=== PATIENT | female | born 1955 ===

== ENCOUNTER 2019-03-29 08:47 | Outpatient (CLI) | payer OTHER ==
--- NOTE | 2019-03-29 10:12 | Cat Scan Report ---
CT CHEST WITHOUT CONTRAST INDICATION / CLINICAL INFORMATION: MAIN: J98.4 OTHER DISORDER OF LUNG/ILD/RESTRICTIVE LUNG DISEASE TECH NOTES: PT C/O FOOD STRUCK IN THROAT WHILE EATING. TECHNIQUE: Axial CT images were obtained through the chest without contrast. Sagittal and coronal reformatted im ages. All CT scans at this location are performed using CT dose reduction for ALARA by means of autom ated exposure control. COMPARISON: None available. FINDINGS: HEART: Borderline heart size. No pericardial effusion. THORACIC AORTA: Minimal scattered calcific plaques. No abnormal dilatation. MEDIASTINUM and YOLY: Normal thyroid and tracheobronchial tree. There is a mild degree of fluid in th e esophagus. The esophagus is unremarkable otherwise. No obvious mass or hiatal hernia. LUNGS: Subpleural interstitial markings are slightly prominent in both lower lung zones. There is no evidence for nodule, mass or infiltrate. PLEURA: No significant pleural effusion. No pneumothorax. SKELETAL SYSTEM: Mild multilevel degenerative disc disease is noted in the thoracic spine. No suspici ous bony lesion or fracture is identified. UPPER ABDOMEN: 4.5 cm simple cyst is noted in the superior liver. ADDITIONAL FINDINGS: None. IMPRESSION: Mild interstitial prominence in the lower lung zones which could represent early idiopathic pulmonar y fibrosis. No advanced interstitial lung disease. Borderline heart size. Degenerative changes in the thoracic spine. Liver cyst. Signer Name: Rc Mattson Jr, MD Signed: 03/29/2019 10:07 AM Workstation Name: [id number]
== END 2019-03-29 08:48 | disposition home or self-care (01) ==
LOC: CT 08:47
PROVIDERS: ATTEND Internal Medicine Critical Care Medicine
DX: J98.4 Other disorders of lung (principal); K76.89 Other specified diseases of liver; M47.814 Spondylosis without myelopathy or radiculopathy, thoracic region; M51.34 Other intervertebral disc degeneration, thoracic region
CPT/HCPCS: 71250